=== PATIENT | female | born 1980 | race Caucasian/White ===

== ENCOUNTER 2016-11-09 09:10 | Day surgery (SDC) | payer OTHER ==
[~2016-11-09] VITALS: Ht 160 cm; Wt 68.2 kg
[2016-11-09] VITALS (10 sets, daily range): BP systolic 93–113; BP diastolic 53–70; PULSE 62–85; RESP 15–24; Ht 160 cm; Wt 68.2 kg
[2016-11-09] MEDS ORDERED: MEPERIDINE 25 MG INJ IV PRN (09:30)
[2016-11-09] MEDS ORDERED: SOD CHLORIDE 0.9% 1,000 ML IV SCH (09:30)
[2016-11-09] MEDS ORDERED: OXYCODONE/ACETAMINOPHEN (5/325) TAB PO PRN ×2 (09:30)
[2016-11-09] MEDS ORDERED: KETOROLAC 30 MG INJ IV ONE (09:30)
[2016-11-09] MEDS ORDERED: DIPHENHYDRAMINE 50 MG INJ IV PRN (09:30)
[2016-11-09] MEDS ORDERED: PROCHLORPERAZINE 10 MG INJ IV PRN (09:30)
[2016-11-09] MEDS ORDERED: ONDANSETRON 4 MG INJ IV PRN (09:30)
[2016-11-09] MEDS ORDERED: FENTAnyl 50 MCG/ML VIAL IV PRN (09:30)
[2016-11-09] MEDS ORDERED: CEFAZOLIN 2 GM/50 ML (PMX) 50 ML IVPB ONE (09:30)
[2016-11-09] MEDS ORDERED: LEVO75TA5 PO (09:39)
[2016-11-09] MEDS ORDERED: [UNRECOGNIZED DRUG - REMARK] XX SCH (10:30)
[2016-11-09] MEDS ORDERED: CLINDAMYCIN 900 MG/D5W (PMX) 50 ML IVPB SCH (10:30)
[2016-11-09] MEDS ORDERED: PROPOFOL 20 ML ONE (10:40)
[2016-11-09] MEDS ORDERED: ROCURONIUM 50 MG INJ ONE (10:40)
[2016-11-09] MEDS ORDERED: LIDOCAINE 2% (SDV) 5 ML INJ ONE (10:40)
[2016-11-09] MEDS ORDERED: CEFAZOLIN 1 GM INJ ONE (10:40)
[2016-11-09] MEDS ORDERED: FENTAnyl 50 MCG/ML VIAL ONE ×2 (10:40→12:34)
[2016-11-09] MEDS ORDERED: MIDAZOLAM 1 MG/ML 2 ML INJ ONE (10:40)
[2016-11-09] MEDS ORDERED: SUCCINYLCHOLINE CHLORIDE 100 MG/5 ML SYG IV ONE (10:40)
[2016-11-09] MEDS ORDERED: BUPIVACAINE 0.25% (MPF) 30 ML INJ ONE (11:24)
[2016-11-09] MEDS ORDERED: DEXAMETHASONE 4 MG/ML 1 ML INJ ONE (11:58)
[2016-11-09] MEDS ORDERED: ONDANSETRON 4 MG INJ ONE (11:58)
[2016-11-09] MEDS ORDERED: GLYCOPYRROLATE 0.4 MG INJ ONE ×2 (12:15)
[2016-11-09] MEDS ORDERED: NEOSTIGMINE 3 MG/3 ML SYRINGE ONE ×2 (12:15)
--- NOTE | 2016-11-09 12:31 | OPR ---
Date/Time of Note Date/Time of Note DATE: 11/09/16 TIME: 12:30 Operative Report Procedure Date: November 09, 2016 Preoperative Diagnosis symptomatic gallstones Postoperative Diagnosis same Operation Performed lap nathaniel Surgeon: Amy PRATER Specimens gallbladder Amy PRATER November 09, 2016 12:31
--- NOTE | 2016-11-09 12:38 | OPR ---
DATE OF OPERATION: 11/09/2016 INDICATION: This is a 36-year-old female with symptomatic gallstones. She requests surgical excisi on of her gallbladder. Risks, alternatives, benefits, and personnel were discussed with the patient . Patient expressed understanding and consents to the operation. PREOPERATIVE DIAGNOSIS: Symptomatic gallstones. POSTOPERATIVE DIAGNOSIS: Symptomatic gallstones. OPERATION: Laparoscopic cholecystectomy. SURGEON: Negin Pierson MD BREAD SLICER MACHINE: Jerry Sood MD SPECIMENS: Gallbladder. OPERATION PERFORMED: 1. Laparoscopic cholecystectomy. 2. Therapy injection of subcutaneous Marcaine, CPT code 23067. COMPLICATIONS: None. ANESTHESIA: General. PROCEDURE: The patient was taken to the OR and prepped and draped in the usual sterile fashion. Gamble rgical timeout was performed. IV antibiotics given. Infraumbilical incision was made transversely with a 15 blade. Dissection cautery was carried down to the fascia which was divided with curved Ma yo scissors, 0 Vicryl U-stitch was placed into the fascia. Balloon Aliya trocar was introduced. P neumoperitoneum was established. Midepigastric 12 mm Optiview trocar and right upper quadrant and r ight upper flank 5 mm optical trocars are placed under direct visualization. Upon initial inspectio n, there were some adhesions to the gallbladder which were taken down bluntly. The cystic duct was identified. The critical view was established. The cystic artery was divided using 2 clips proxima l, 1 clip distal. The cystic duct was divided using a 35 mm Lovejoy vascular load stapler. The sta ple line was reinforced with clips. Gallbladder was taken off the gallbladder bed. There was good hemostasis. Gallbladder was retrieved using an EndoCatch bag. Ports were removed under direct visu alization, 0 Vicryl U-stitch was tied down. Skin was closed using skin alana. Local anesthesia w as injected and dressings applied. Dictated By: NEGIN CODY/RADHA Conf#: [id number] DID#: [id number]
[2016-11-09] MEDS: HYDROmorphONE (0.2 MG/ML) 10ML SYG IV PRN ×2 (12:58→13:04)
[2016-11-09] MEDS ORDERED: HYDROCODONE/APAP (5/325) TAB PO ONE (13:00)
== END 2016-11-09 14:18 | disposition home or self-care (01) ==
LOC: SDS 09:10 → EDBD 14:00 → SDS 14:18
PROVIDERS: ATTEND Surgery
DX: K81.1 Chronic cholecystitis (principal); E03.9 Hypothyroidism, unspecified; E66.9 Obesity, unspecified; Z68.26 Body mass index [BMI] 26.0-26.9, adult
CPT/HCPCS: 47562; 84703; 88304; J0690; J1100; J1170; J1885; J2175; J2250; J2405; J2710; J3010; J7999; Z7512; Z7610

== ENCOUNTER 2017-08-10 06:28 | Day surgery (SDC) | END 2017-08-10 10:28 | disposition home or self-care (01) ==